=== PATIENT | male | born 1995 | race Caucasian/White ===

== ENCOUNTER 2018-01-28 06:19 | Day surgery (SDC) | payer OTHER ==
[~2018-01-28] VITALS: Ht 185.4 cm; Wt 67.1 kg
[2018-01-28] VITALS (10 sets, daily range): BP systolic 104–128; BP diastolic 55–73
[~2018-01-28 06:19] MED LIST: IBUPROFEN600 MG ORAL; TRAZODONE HCL50 MG ORAL; ceFAZolin 1gm IVPB IVPB ONE; celeBREX 200mg Cap **SURGERY PATIENTS ONLY ORAL ONE; oxyCONTIN 20mg tab ORAL ONE
--- NOTE | 2018-01-28 07:06 | Pre-Procedure Note/Attestation ---
Pre-Procedure Note/Attestation Complete Prior to Procedure Planned Procedure: right Procedure Narrative: knee arthoscopy, possible synovectomy, menisectomy, chondroplasty and removal of hardware Indications for Procedure Pre-Operative Diagnosis: right knee internal derangement and painful hardware Attestation I attest that I discussed the nature of the procedure; its benefits; risks and complications; and alternatives (and the risks and benefits of such alternatives ), prior to the procedure, with the patient (or the patient's legal employment program representative). I attest that, if there was a reasonable possibility of needing a blood transfusion, the patient (or the patient's legal employment program representative) was given the [facility] standardized written summary, pursuant to the Eric Randy Blood Safety Act ([place] Health and Safety Code # 1645, as amended). I attest that I re-evaluated the patient just prior to the surgery and that there has been no change in the patient's H&P, except as documented below: Jose Manuel Medina MD Jan 28, 2018 07:06
--- NOTE | 2018-01-28 07:07 | Operative Note - PDOC ---
Operative Note Operative Note Pre-op Diagnosis: right knee internal derangement and painful hardware Procedure: see op report Post-op Diagnosis: same as pre-op plus Operative Findings: consistent w/pre-op dx studies Anesthesia: general Specimen: none Complications: none Condition: stable Estimated Blood Loss: none Implant(s) used?: No Jose Manuel Medina MD Jan 28, 2018 07:07
[2018-01-28] MEDS ORDERED: Midazolam 2mg/2ml Inj ONE (08:26)
[2018-01-28] MEDS ORDERED: fentaNYL 100 mcg/2 mL IV ONE (08:26)
[2018-01-28] MEDS ORDERED: Lidocaine 1% MPF 10mg/ml 5ml ONE ×2 (08:31→08:48)
[2018-01-28] MEDS ORDERED: Ketorolac 30mg Inj ONE ×2 (08:31→08:56)
[2018-01-28] MEDS ORDERED: Propofol 200mg/20ml IV ONE (08:31)
[2018-01-28] MEDS ORDERED: Sodium Chloride 10ml vial INJ ONE (08:31)
[2018-01-28] MEDS ORDERED: Ropivacaine 5mg/ml Vial 30ml INJ ONE (08:48)
[2018-01-28] MEDS ORDERED: Morphine Sulfate PF 10 ML ONE (08:55)
[2018-01-28] MEDS ORDERED: Kenalog-40 1ml Vial ONE (08:56)
[2018-01-28] MEDS ORDERED: Bupivacaine w/Epi 0.25% 30ml Vial INJ ONE (08:56)
[2018-01-28] MEDS ORDERED: Bupivacaine 0.5% Inj 30 ml vial INJ ONE (08:56)
[2018-01-28] MEDS ORDERED: Lidocaine 1% 10mg/ml/Epi 0.005mg/ml 30ml vial INJ ONE (08:56)
[2018-01-28] MEDS ORDERED: LR 1000ml ONE (09:02)
[2018-01-28] MEDS ORDERED: Duramorph PF 10mg/10ml amp EPIDUR ONE (09:12)
[2018-01-28] MEDS ORDERED: DiphenhydrAMINE 50mg/ml Inj IVP PRN (09:45)
[2018-01-28] MEDS ORDERED: LR 1000ml 1,000 ML IVLG SCH (09:45)
[2018-01-28] MEDS ORDERED: Metoclopramide 10mg/2ml Inj IVP PRN (09:45)
[2018-01-28] MEDS ORDERED: Ketorolac 30mg Inj IV PRN (09:45)
[2018-01-28] MEDS ORDERED: fentaNYL 100 mcg/2 mL IV PRN (09:45)
[2018-01-28] MEDS ORDERED: Meperidine 50mg/ml Inj(FOR RIGORS ONLY) IV PRN (09:45)
--- NOTE | 2018-01-28 09:45 | Anethesia Preoperative Eval ---
Anesthesia Pre-op PMH/ROS General Date of Evaluation: Jan 28, 2018 Time of Evaluation: 08:45 Anesthesiologist: Shanae ASA Score: ASA 2 Mallampati Score Class I : Soft palate, uvula, fauces, pillars visible Class II: Soft palate, uvula, fauces visible Class III: Soft palate, base of uvula visible Class IV: Only hard plate visible Mallampati Classification: Class II Surgeon: Adam Diagnosis: R knee pain Surgical Procedure: R knee scope hardwear removal Anesthesia History: none Family History: no anesthesia problems Allergies: Coded Allergies: No Known Allergies (Unverified , 01/28/18) Medications: see eMAR Patient NPO?: Yes Past Medical History Cardiovascular: Denies: HTN, CAD, GA, valve dz, arrhythmia, other Pulmonary: Denies: asthma, COPD, FLOR, other Gastrointestinal/Genitourinary: Denies: GERD, CRI, ESRD, other Neurologic/Psychiatric: Reports: other - chronic pain; Denies: dementia, CVA, depression/anxiety, TIA Endocrine: Denies: DM, hypothyroidism, steroids, other HEENT: Denies: cataract (L), cataract (R), glaucoma, [place] (L), [place] (R), other Hematology/Immune: Denies: anemia, DVT, bleeding disorder, other Musculoskeletal/Integumentary: Denies: OA, RA, DJD, DDD, edema, other PMH Narrative: as above PSxH Narrative: ORIF R femoral Fx Anesthesia Pre-op Phys. Exam Physician Exam Last Vital Signs Date Time Temp Pulse Resp B/P (MAP) Pulse Ox O2 Delivery O2 Flow Rate FiO2 01/28/18 06:51 97.9 71 18 113/73 96 Room Air Constitutional: NAD Neurologic: CN 2-12 intact Cardiovascular: RRR, no M/R/G Respiratory: CTA Gastrointestinal: S/NT/ND Airway Exam Mallampati Score: Class II MO: full Neck: flexible ROM: full Teeth: intact Dentures: no upper, no lower Anesthesia Pre-op A/P Labs see chart Studies Pre-op Studies: EKG - NSR Risk Assessment & Plan Assessment: ASA 2 Plan: GA wth LMA, Femoral adductor block for postop pain control Status Change Before Surgery: No Pre-Antibiotics Drug: Ancef 1gr Given Within 1 Hr of Incision: Yes Time Given: 09:28 Mingo Jolly MD Jan 28, 2018 09:45
--- NOTE | 2018-01-28 10:33 | Diagnostic Imaging Report ---
Indication: Knee pain Technique: 2 views of the right knee Comparison: None Findings: Multiple surgical screws are seen within the distal femur. No acute fractures. No dislocations. No suprapatellar effusion. Impression: Post surgical changes, as described No acute process
--- NOTE | 2018-01-28 10:35 | Immediate Post-Op Evaluation ---
Immediate Post-Op Evalulation Immediate Post-Op Evalulation Procedure: R knee artyhroscopy hardwear removal Date of Evaluation: Jan 28, 2018 Time of Evaluation: 10:34 IV Fluids: 1100 Blood Products: none Estimated Blood Loss: min Urinary Output: none Blood Pressure Systolic: 104 Blood Pressure Diastolic: 57 Pulse Rate: 78 Respiratory Rate: 20 O2 Sat by Pulse Oximetry: 99 Temperature (Fahrenheit): 97.7 Pain Score (1-10): 1 Nausea: No Vomiting: No Complications none Patient Status: reacts, none Hydration Status: adequate Mingo Jolly MD Jan 28, 2018 10:35
--- NOTE | 2018-01-28 11:21 | 48 Hour Post Anesthesia Eval ---
Post Anesthesia Evaluation Procedure: R knee artyhroscopy hardwear removal Date of Evaluation: Jan 28, 2018 Time of Evaluation: 11:20 Blood Pressure Systolic: 116 0: 59 Pulse Rate: 64 Respiratory Rate: 20 Temperature (Fahrenheit): 97.6 O2 Sat by Pulse Oximetry: 98 Airway: patent Nausea: No Vomiting: No Pain Intensity: 2 Hydration Status: adequate Cardiopulmonary Status: stable Mental Status/LOC: patient returned to baseline Follow-up Care/Observations: n/a Post-Anesthesia Complications: none Follow-up care needed: ready to discharge Mingo Jolly MD Jan 28, 2018 11:21
[2018-01-28] MEDS ORDERED: HYDROmorphone 1mg/ml Carpuject SUBQ PRN (15:01)
[2018-01-28] MEDS ORDERED: Tylenol #3 tab (300mg/30mg) ORAL PRN (15:01)
[2018-01-28] MEDS ORDERED: D5 1/2NS 1,000 ML IV SCH (15:01)
[2018-01-28] MEDS ORDERED: Norco 5mg/325mg tab ORAL PRN (15:01)
--- NOTE | 2018-01-28 20:45 | Operative Note - Dictated ---
DATE OF OPERATION: 01/28/2018 PREOPERATIVE DIAGNOSES: 1. Right knee internal derangement. 2. Status post ORIF of right knee medial femoral condyle fracture. POSTOPERATIVE DIAGNOSES: 1. Right knee medial femoral condyle grade 2 chondral damage. 2. Painful hardware of right knee. 3. Hypertrophic scar, 2 cm, medial knee. 4. Grade 2 chondral damage measuring 15 mm on the inferior pole of the patella. PROCEDURES: 1. Right knee diagnostic arthroscopy and synovectomy of lateral, medial, and patellofemoral compartment. 2. Right knee medial and patellofemoral compartment chondroplasty. 3. Removal of right knee hardware through a separate incision, 5 screws and 2 washers. 4. Scar revision 3 cm SURGEON: Jose Manuel Medina M.D. ANESTHESIA: General with femoral adductor block. INDICATION FOR PROCEDURE: The patient is a pleasant 22-year-old gentleman, who underwent open reduction and internal fixation of the medial femoral condyle fracture and had continued pain despite of the procedure. It was elected to undergo right knee diagnostic arthroscopy and removal of the hardware once the fracture was healed. Risks, limitations, expectations, and complications of procedure were discussed in detail. All questions were addressed. DESCRIPTION OF PROCEDURE: After informed consent was obtained, the patient was brought to the operating room. The patient was placed under general anesthesia. Tourniquet was applied to the right proximal thigh. Right leg was prepped and draped in sterile manner. Time-out was performed. At this point, inferolateral stab incision was then made. Trocar was introduced into the knee joint. There was hypertrophic fat pad and synovial tissue in the retropatellar space area. There was a grade 2 chondral flap transverse along the inferior pole of the patella. Medial compartment was entered. There was hypertrophic synovial tissue and fat pad in the medial compartment. Medial working portal was established. At this point, a complete synovectomy/excision of fat pad/debridement of ligamentum mucosum was performed to better visualize the medial compartment. There was some grade 2 chondral damage of medial femoral condyle where the the fracture occurred. There was no prominent hardware that was noticeable. Chondroplasty of medial femoral condyle was performed. The medial meniscus was probed and noted to be intact. Intercondylar notch was entered. The ACL was noted to be intact. Lateral compartment was entered and was free of meniscal or chondral damage. At this point, the camera was placed in the patellofemoral compartment and synovectomy and chondroplasty was completed. The portal sites were closed with 3-0 Monocryl sutures. At this point, attention was turned towards the removal of the hardware. The previous hypertrophic scar was cut out. Dissection down to the medial femoral condyle was performed and 5 screws and 2 washers were removed. The screw holes were filled with bone wax. The arthrotomy sites were closed with #1 Vicryl suture, 2-0 Vicryl suture, and 3-0 Monocryl sutures and Dermabond. The patient was awoken and taken to recovery room with stable vital signs. ESTIMATED BLOOD LOSS: None. COMPLICATIONS: None. SPECIMENS: None. IMPLANTS: None. EXPLANTS: Include 5 screws and 2 washers. Jose Manuel Medina M.D. DR: Venkatesh JOB#: [id number] CC: [email or web address]
== END 2018-01-28 12:30 | disposition home or self-care (01) ==
LOC: SUR 06:19 → EDBD 08:45 → SUR 12:30
DX: M23.8X1 Other internal derangements of right knee (principal); T84.84XA Pain due to internal orthopedic prosthetic devices, implants and grafts, initial encounter; Y83.8 Other surgical procedures as the cause of abnormal reaction of the patient, or of later complication, without mention of misadventure at the time of the procedure; Y92.89 Other specified places as the place of occurrence of the external cause; L91.0 Hypertrophic scar
CPT/HCPCS: 11400; 20680; 29876; 73560; J0690; J1885; J2250; J2405; J2704; J2795; J3010; J3301; J3490; 94003; 94150